=== PATIENT | male | born 1970 | race Caucasian/White ===

== ENCOUNTER 2020-03-26 02:17 | Emergency (ER) | payer SELFPAY ==
[~2020-03-26] VITALS: Ht 162.6 cm; Wt 72.6 kg
[2020-03-26 02:18] VITALS: BP 146/92
--- NOTE | 2020-03-26 02:20 | NUR ---
PT TAKEN TO [facility]. [facility]P AT BEDSIDE.
--- NOTE | 2020-03-26 02:37 | NUR ---
pt discharged back to [facility] custody with VSS. discharged to Officer Arnoldo # [id number]
== END 2020-03-26 02:39 ==
LOC: MED 02:17
DX: M25.511 Pain in right shoulder (principal); M25.512 Pain in left shoulder; Z02.89 Encounter for other administrative examinations; V89.2XXA Person injured in unspecified motor-vehicle accident, traffic, initial encounter; Y93.89 Activity, other specified; Y92.89 Other specified places as the place of occurrence of the external cause; Y99.8 Other external cause status
CPT/HCPCS: 99283